=== PATIENT | male | born 1970 | race Caucasian/White ===

== ENCOUNTER → 2019-10-08 | Outpatient (CLI) | payer OTHER | LOC: CAT 11:01 | DX: Z13.6 Encounter for screening for cardiovascular disorders (principal); E78.00 Pure hypercholesterolemia, unspecified; I25.10 Atherosclerotic heart disease of native coronary artery without angina pectoris ==

== ENCOUNTER 2021-04-20 02:21 | Emergency (ER) | payer BC, OTHER ==
[~2021-04-20] VITALS: Ht 185.4 cm; Wt 106.6 kg
[2021-04-20] MEDS ORDERED: LIPITOR 20 MG T20 M1 PO (02:36)
[2021-04-20] MEDS ORDERED: NEURONTIN300 MG PO (02:36)
[2021-04-20] MEDS ORDERED: ASA81BEC PO (02:36)
[2021-04-20 03:03] LABS: ABSOLUTE NEUTROPHILS 3.9 thou/uL (1.4-8.2); BASOPHILS 0.8 % (0.0-2.0); EOSINOPHILS 1.6 % (0.0-3.0); HEMATOCRIT 42.3 % (42.0-52.0); HEMOGLOBIN 14.3 gm/dL (14.0-18.0); LYMPHOCYTES 29.7 % (24.0-44.0); MCH 30.1 pg (26.0-34.0); MCHC 33.8 g/dL (28.0-37.0); MCV 89.2 fL (80.0-100.0); MONOCYTES 9.4 % (1.0-8.0); PLATELET COUNT 288 thou/uL (150-400); POLYS 58.5 % (36.0-66.0); RBC 4.74 mil/uL (4.50-6.00); RDW 13.4 % (10.5-14.5); WBC 6.7 thou/uL (4.0-11.0)
[2021-04-20 03:07] LABS: ANION GAP 8 mmol/L (7-16); BUN 12 mg/dL (7-18); CALCIUM 9.2 mg/dL (8.5-10.1); CHLORIDE 106 mmol/L (98-107); CO2 28 mmol/L (21-32); GLUCOSE 89 mg/dL (74-106); POTASSIUM 4.6 mmol/L (3.5-5.1); SODIUM 142 mmol/L (136-145)
[2021-04-20 03:18] LABS: ALBUMIN 4.2 g/dL (3.4-5.0); LIPASE 105 U/L (73-393); SGOT 48 U/L (15-37); SGPT 49 U/L (30-65); TOTAL PROTEIN 7.4 g/dL (6.4-8.2); TROPONIN-I <0.06 ng/mL (<0.06)
[2021-04-20] MEDS ORDERED: PREDNISONE 10 M10 M1 PO (05:42)
[2021-04-20 05:47] VITALS: BP 132/82
--- NOTE | 2021-04-20 07:18 | EKG ---
[address] [address] ELECTROCARDIOGRAM REPORT Name: RAEANNVALARIE GARRISON [id number] Admission: 04/20/21 Attend Phys: Discharge: Date of : 70 Report #: [id number] [facility] ED Test Date: 2021-04-20 Test Time: 02:30:45 Pat Name: VALARIE VAZQUEZ Department: Room: Gender: M Fire Adjuster: lorena : 1970 Requested By: Femi Fountain Order Number: [id number] MD: Madi Cooney Measurements Intervals [place] Rate: 70 P: 41 SC: 157 QRS: 64 QRSD: 90 T: 47 QT: 375 QTc: 405 Interpretive Statements Sinus rhythm No previous ECG available for comparison Electronically Signed On 04-20-2021 7:17:43 CDT by Madi Cooney [email or web address] <ELECTRONICALLY SIGNED> By: Madi Cooney MD, [facility] 04/20/21 0717 0230 0230 Madi Cooney MD, FACC /EPI
== END 2021-04-20 06:04 | disposition home or self-care (01) ==
LOC: ER 02:21
PROVIDERS: Emergency Medicine
DX: R07.89 Other chest pain (principal); M54.12 Radiculopathy, cervical region; E78.00 Pure hypercholesterolemia, unspecified; F17.200 Nicotine dependence, unspecified, uncomplicated; Z91.030 Bee allergy status

== ENCOUNTER → 2021-07-02 | Outpatient (CLI) | payer BC, OTHER ==
[~2021-07-02] MED LIST: ASA81BEC PO; LIPITOR 20 MG T20 M1 PO; NEURONTIN300 MG PO; PREDNISONE 10 M10 M1 PO
== END ==
LOC: SJCVCIMAG 08:43
PROVIDERS: ATTEND Internal Medicine
DX: R07.9 Chest pain, unspecified (principal); R00.2 Palpitations; R53.83 Other fatigue; R06.00 Dyspnea, unspecified

== ENCOUNTER → 2021-07-24 | Outpatient (CLI) | payer BC, OTHER ==
[~2021-07-24] VITALS: Ht 182.9 cm; Wt 101.6 kg
[~2021-07-24] MED LIST changes: +OMEPRAZOLE40 MG PO
[2021-07-24 10:07] VITALS: BP 113/71
[2021-07-24 10:28] LABS: HEMATOCRIT 44.5 % (42.0-52.0); HEMOGLOBIN 14.7 gm/dL (14.0-18.0); MCH 29.3 pg (26.0-34.0); MCHC 33.1 g/dL (28.0-37.0); MCV 88.4 fL (80.0-100.0); RBC 5.03 mil/uL (4.50-6.00); RDW 13.4 % (10.5-14.5); WBC 5.6 thou/uL (4.0-11.0)
[2021-07-24 10:37] LABS: CREATININE 1.1 mg/dL (0.7-1.3); POTASSIUM 3.9 mmol/L (3.5-5.1)
--- NOTE | 2021-08-17 11:40 | CATHLAB ---
[facility] [place] [address] INVASIVE PROCEDURE REPORT Name: VALARIE VAZQUEZ Room #: REG KVNG GlassMilo#: [id number] Admission: 07/24/21 Attend Phys: Munir Reese Discharge: Date of : 70 Report #: [id number] THIS REPORT FOR: cc: Suman Cooney Jayme DO Lammoglia, Francisco J. MD ~ APPROVED REPORT Study performed: 07/24/2021 10:13:00 Patient Details Patient Status: Out-Patient Room #: The patient is a 50 year-old male Event Personnel Munir Reese Vp Genetic, Eduarda Carbajal RT(R)() Monitor, Ivania Lucas RTR, Zelalem Andrew Jessica RN cattle and wheat farmer Performed Art Access - R femoral artery* Left Heart Cath w/or w/o Coronaries [id number] [facility] [address] Initial Mod Sed Same Phys/QHP Gr5y [id number] Hemostasis with Manual pressure, supervision of conscious sedation Indication Dyspnea, Chest pain Procedure Narrative The Right Groin^ was infiltrated with 1% Lidocaine subcutaneous anesthesia. A PINNACLE 4FR Sheath #[id number] sheath was inserted into the RFA 4F^. Coronary angiography was performed using coronary diagnostic catheters. The right coronary system was accessed and visualized with a 3DRC catheter. The left coronary system was accessed and visualized with a JL4 catheter. The left ventricle was accessed and visualized with a 3DRC catheter. Hemostasis was obtained with manual pressure following sheath removal without any complications. The patient tolerated the procedure well and there were no complications associated with the procedure. There was no hematoma. Intraoperative Conscious Sedation Versed 3 mg [facility] [address] [place] [address] INVASIVE PROCEDURE REPORT Name: VALARIE VAZQUEZ Room #: REG Mike#: [id number] Admission: 07/24/21 Attend Phys: Munir Jonas Discharge: Date of : 70 Report #: [id number] Fluoro Time: 4.70 minutes Dose: DAP 6166.20 cGycm2 Contrast Type and Amount: Omnipaque 42 ml Coronary Angiography The patient's coronary anatomy is right dominant. Diagnostic Cath Left Main Large-caliber vessel normal origin bifurcates left anterior same of circumflex free of high-grade disease LAD Moderate caliber type III vessel which courses in the interventricular sulcus. Gives rise to small caliber first and second diagonal branches as it coursed towards the apex and terminates as a bifurcating vessel in the inferior apical wall. No high-grade lesions are noted. Diagonal 1 Small caliber vessel without high-grade lesions present Circumflex Large-caliber nondominant vessel coursing in the interventricular sulcus giving rise to 2 lateral wall marginal branch and one posterior wall marginal branch. No high-grade lesions are noted. OM1 Small to moderate caliber vessel without significant high-grade lesion coursing on the lateral aspect heart OM2 Small caliber vessel without significant lesions OM3 Small nondominant vessel without significant stenosis Right Coronary Large-caliber dominant vessel with mild 30% plaque at its origin. And continues in AV groove giving rise to RV and RA branches with a free of high-grade disease. The vessel continues to the crux gives rise to moderate caliber posterior descending artery and then terminates as a posterior wall vessel with 3 small branches and an artery to the AV node. No significant stenosis are noted R PDA Moderate caliber vessel without high-grade lesions present Hemodynamics The aortic pressure is 108/59 mmHg with a mean of 81 mmHg. The left ventricular pressure is 107/6 mmHg with a mean of mmHg. The left ventricular end diastolic pressure is 17 mmHg. Conclusion 1. Normal coronary arteries 2. Normal hemodynamic [facility] [place] [address] INVASIVE PROCEDURE REPORT Name: RAEANNMELIVALARIE Room #: REG COUNTS INCLUDE 234 BEDS AT THE [facility]#: [id number] Admission: 07/24/21 Attend Phys: Munir Jonas Discharge: Date of : 70 Report #: [id number] Recommendations Cardiac Risk Reduction Program <ELECTRONICALLY SIGNED> By: Munir Reese MD 08/17/21 1140 1140 1140 Munir Reese MD /INF
== END | disposition home or self-care (01) ==
LOC: CATH 07:32
PROVIDERS: ATTEND Internal Medicine
DX: R07.9 Chest pain, unspecified (principal); R06.00 Dyspnea, unspecified; R94.39 Abnormal result of other cardiovascular function study; R00.2 Palpitations; E78.00 Pure hypercholesterolemia, unspecified; F17.220 Nicotine dependence, chewing tobacco, uncomplicated; Z98.890 Other specified postprocedural states; Z79.899 Other long term (current) drug therapy; Z79.82 Long term (current) use of aspirin

== ENCOUNTER 2021-11-08 15:19 | Emergency (ER) | payer BC, OTHER ==
[~2021-11-08] VITALS: Ht 185.4 cm; Wt 93.9 kg
[2021-11-08 16:30] VITALS: BP 120/75
[2021-11-08 16:46] LABS: ABSOLUTE NEUTROPHILS 4.7 thou/uL (1.4-8.2); BASOPHILS 0.7 % (0.0-2.0); EOSINOPHILS 0.7 % (0.0-3.0); HEMATOCRIT 42.9 % (42.0-52.0); HEMOGLOBIN 14.1 gm/dL (14.0-18.0); LYMPHOCYTES 19.2 % (24.0-44.0); MCHC 32.9 g/dL (28.0-37.0); MCV 87.9 fL (80.0-100.0); MONOCYTES 5.9 % (1.0-8.0); PLATELET COUNT 278 thou/uL (150-400); POLYS 73.5 % (36.0-66.0); RBC 4.88 mil/uL (4.50-6.00); RDW 13.5 % (10.5-14.5); WBC 6.3 thou/uL (4.0-11.0)
[2021-11-08 16:55] LABS: CALCIUM 9.2 mg/dL (8.5-10.1); POTASSIUM 4.6 mmol/L (3.5-5.1)
[2021-11-08 17:05] LABS: ALBUMIN 3.9 g/dL (3.4-5.0); TOTAL BILIRUBIN 1.4 mg/dL (0.2-1.0); TOTAL PROTEIN 6.7 g/dL (6.4-8.2)
--- NOTE | 2021-11-09 07:30 | EKG ---
[address] [address] ELECTROCARDIOGRAM REPORT Name: VALARIE VAZQUEZ [facility] [id number] Admission: 11/08/21 Attend Phys: Discharge: 11/08/21 Date of : 70 Report #: [id number] [facility] ED Test Date: 2021-11-08 Test Time: 15:27:04 Pat Name: VALARIE VAZQUEZ Department: Room: Gender: Associate Account Manager: JOSE LUIS : 1970 Requested By: Arnoldo Aranda Order Number: [id number] MD: Madi Cooney Measurements Intervals [place] Rate: 74 P: 49 MN: 141 QRS: 79 QRSD: 84 T: 60 QT: 356 QTc: 395 Interpretive Statements Sinus rhythm Compared to ECG 04/20/2021 02:30:45 No significant changes Electronically Signed On 11-09-2021 7:30:05 [employer] by Madi Cooney [email or web address] <ELECTRONICALLY SIGNED> By: Madi Cooney MD, [facility] 11/09/21 0730 1527 1527 Madi Cooney MD, FACC /EPI
== END 2021-11-08 18:32 | disposition home or self-care (01) ==
LOC: ER 15:19
PROVIDERS: Emergency Medicine
DX: R07.89 Other chest pain (principal); E78.00 Pure hypercholesterolemia, unspecified; Z79.82 Long term (current) use of aspirin; Z79.899 Other long term (current) drug therapy; Z91.030 Bee allergy status